=== PATIENT | female | born 1960 | race Asian ===

== ENCOUNTER 2019-08-29 05:17 | Emergency (ER) | payer OTHER ==
[~2019-08-29] VITALS: Ht 160 cm; Wt 61.0 kg
[2019-08-29] MEDS ORDERED: ONDANSETRON HCL 4MG/2ML INJ IV STA (05:32)
[2019-08-29] MEDS ORDERED: SODIUM CHLORIDE 0.9% 1,000 ML IV ONE (05:32)
[2019-08-29] MEDS ORDERED: ADENOSINE 3 MG/ML 2ML VIAL IV ONE ×2 (05:45)
[2019-08-29] MEDS ORDERED: MORPHINE SULFATE 4 MG/ML CPJ (NOT FOR IM USE) IV ONE (05:45)
[2019-08-29 06:05] LABS: BASOPHILS % 0.6 % (0.0-2.0); EOSINOPHILS % 1.4 % (0.0-5.0); HEMATOCRIT. 41.7 % (36.0-48.0); LYMPHOCYTES % 19.4 % (20.0-50.0); MEAN CORPUSCULAR HEMOGLOBIN 29.8 pg (28.0-32.0); MEAN CORPUSCULAR VOLUME 88.9 fL (81.0-99.0); MEAN PLATELET VOLUME 8.4 fl (7.4-10.4); MONOCYTES % 8.1 % (2.0-8.0); NEUTROPHILS % 70.5 % (40.0-76.0); PLATELET 238 x1000/uL (130-400); RED BLOOD CELL COUNT 4.69 mill/uL (4.2-5.4); RED CELL DISTRIBUTION WIDTH 13.1 % (11.6-14.6)
[2019-08-29 06:13] LABS: CHLORIDE 111 mEq/L (98-107)
[2019-08-29 06:15] LABS: PROTHROMBIN TIME 10.1 sec (9.6-11.0)
[2019-08-29 06:17] LABS: ETHANOL BLOOD < 10 mg/dL
[2019-08-29 08:42] VITALS: BP 110/72
== END 2019-08-29 09:24 | disposition short-term general hospital (02) ==
LOC: ER 05:17 → CANRESERV 15:57 → ENRESERV 15:57 → CANBEDREQ 23:20
DX: I47.1 Supraventricular tachycardia (principal); R07.9 Chest pain, unspecified; R00.2 Palpitations; I50.9 Heart failure, unspecified
CPT/HCPCS: 36415; 71045; 80053; 80320; 83690; 83880; 84484; 85025; 85610; 85730; 93005; 96374; 96375; 99291; J0153; J2270; J2405; J7030; G0480